=== PATIENT | male | born 1945 | race Caucasian/White ===

== ENCOUNTER 2016-09-09 19:15 | Inpatient (IN) | payer OTHER ==
[~2016-09-09] VITALS: Ht 177.8 cm; Wt 68.0 kg
--- NOTE | ~2016-09-09 | H ---
[facility] [place] [address] HISTORY AND PHYSICAL Name: ABEL LYNN Room #: 315-P [facility] IN M.R.#: [id number] Admission: 09/09/16 Attend Phys: Catrachito Martines Discharge: 09/11/16 Date of : 45 Report #: [id number] THIS REPORT FOR: //name// CC: FAM unknown Catrachito Martines DATE OF SERVICE: 09/09/2016 ATTENDING PHYSICIAN: Cody Reyes M.D. PRIMARY CARE PHYSICIAN: Dr Villalpando at the [facility]. CHIEF COMPLAINT: Left-side pain. HISTORY OF PRESENT ILLNESS: The patient is a 71-year-old male who reports that he has not been feeling well for about a week. He has been having fevers on and off for a week for which he has been taking Tylenol. He was seen 2 days ago at the [facility] and told that he had a UTI. He was started on Cipro. Initially he felt a little better, but then today he got worse and actually had a fever up to 104.6 and he has been having chills. He developed some left-sided flank pain over the last few days. He can pinpoint the pain right on his lateral left side and does not feel like it is moving. He denies any history of nephrolithiasis. He denies any associated chest pain or shortness of breath. He is on Enbrel and methotrexate for rheumatoid arthritis. Upon my arrival, he was having some nausea and did have vomiting. He denies any other episodes of vomiting at home. He denies any diarrhea, but says his stools have been soft ever since he was on the Cipro over the last few days. He presented in the ER with a temperature of 39.0. He also reports that he has BPH and was told he needed to have a TURP, but that has not yet been scheduled. PAST MEDICAL HISTORY: Rheumatoid arthritis, chronic back pain and restless legs syndrome. PAST SURGICAL HISTORY: Bowel resection for fatty tumors, benign fatty tumor removed from the spine and abdominal wall repair. Cholecystectomy. ALLERGIES: ASPIRIN, CODEINE and PENICILLIN. HOME MEDICATIONS: Methotrexate 2.5 mg weekly, tramadol 50 mg q.4 hours p.r.n., trazodone 100 mg daily, folic acid 400 mcg daily and Enbrel 50 mcg weekly. SOCIAL HISTORY: The patient denies any tobacco, alcohol or drug use. He lives at home with his . He ambulates with a cane. He is retired computer systems information director. FAMILY HISTORY: His mother and father both in their 90s [place] [address] HISTORY AND PHYSICAL Name: ABEL LYNN Room #: 315-P [facility] IN M.R.#: [id number] Admission: 09/09/16 Attend Phys: Catrachito Martines Discharge: 09/11/16 Date of : 45 Report #: [id number] strokes or natural causes. REVIEW OF SYSTEMS: The patient denies any history of coronary artery disease or any recent chest pain or palpitations, denies any history of kidney or liver problems. He denies any history of diabetes. All other 12-point review of systems were reviewed with the patient, otherwise negative unless stated in the HPI. PHYSICAL EXAMINATION: GENERAL: The patient is an alert male in no acute distress. VITAL SIGNS: Temperature max is 39.0, heart rate 118, respirations 17, blood pressure is 153/73 and oxygen 94% on room air. HEENT: PERRLA. He is wearing glass and has strabismus of the left eye. Oral mucosa is pink and moist. NECK: Supple, no JVD noted. CARDIOVASCULAR: Normal S1 and S2. No murmurs, rubs or gallops. RESPIRATORY: Breath sounds are clear bilaterally. No wheezing or rhonchi. Breathing is nonlabored. ABDOMEN: Soft and nondistended. He did have pain in the left lateral lower rib area, but he really does not have any CVA tenderness. Bowel sounds are positive. VASCULAR: No edema noted. Pedal pulses are 2+. NEUROLOGIC: The patient is alert and oriented x 3. Speech is clear. He is moving all extremities equally. No focal neuro deficits noted. LABORATORY AND DIAGNOSTIC DATA: WBC is 8.0, hemoglobin 15.0 and platelets 191. Sodium 138, potassium 4.0, BUN 24, creatinine 1.4 and glucose 133. Lactate 1.9. LFTs are elevated with a bilirubin of 2.4, AST 71, ALT is 89 and alkaline phosphatase is 141. UA showed positive nitrite, trace leukocyte esterase, few wbc's and few bacteria. CT of the abdomen and pelvis showed no inflammatory mass, ascites, bowel obstructive or other acute process. ASSESSMENT AND PLAN: 1. Pyelonephritis with urinary tract infection: Urine will be sent for a culture. Blood cultures will also be drawn. We will continue with cefepime since he has been immunocompromised. Continue with supportive care and IV fluids. 2. Rheumatoid arthritis: He is on immunosuppressant therapy with Enbrel and methotrexate; those will be held. 3. Acute kidney injury versus chronic kidney disease: Prior creatinine is unknown. We will gently hydrate and repeat labs in the morning. 4. Hyperbilirubinemia and mild transaminitis: CT does show that he has had a prior cholecystectomy. I am not sure if these numbers are elevated due to any other abdominal process. We will further evaluate with a right upper quadrant ultrasound. 5. Deep venous thrombosis prophylaxis: Place sequential compression devices. [facility] [address] [place] [address] HISTORY AND PHYSICAL Name: LYNNABEL Room #: 315-P [facility] IN M.R.#: [id number] Admission: 09/09/16 Attend Phys: Catrachito Martines Discharge: 09/11/16 Date of : 45 Report #: [id number] We will continue to follow the patient closely throughout the hospitalization and make changes based on clinical status. <ELECTRONICALLY SIGNED> By: ANGELINA Howell 09/14/16 [id number] ANGELINA Howell /nt
[2016-09-09 19:16] VITALS: BP 153/73
[2016-09-09 19:33] LABS: URINE BILIRUBIN NEGATIVE (Negative); URINE BLOOD 1+ (Negative); URINE COLOR YELLOW; URINE GLUCOSE-RANDOM* NEGATIVE (Negative); URINE KETONES TRACE (Negative); URINE LEUKOCYTES-REFLEX TRACE (Negative); URINE PROTEIN (DIPSTICK) NEGATIVE (Negative)
[2016-09-09 19:44] LABS: SQUAMOUS None Seen /LPF (0-3); URINE RBC 3-10 Few /HPF (0-2); URINE WBC-REFLEX 6-15 Few /HPF (0-5)
[2016-09-09 19:45] LABS: CASTS None Seen /LPF (None Seen); CRYSTALS None Seen /LPF (None Seen)
[2016-09-09 19:55] LABS: HEMATOCRIT 42.2 % (42.0-52.0); MCH 30.3 pg (26.0-34.0); MCHC 35.6 g/dL (28.0-37.0); MCV 85.3 fL (80.0-100.0); PLATELET COUNT 191 thou/uL (150-400); RBC 4.94 mil/uL (4.50-6.00); RDW 14.6 % (10.5-14.5)
[2016-09-09 19:57] LABS: MANUAL DIFF YES
[2016-09-09 20:08] LABS: CALCIUM 8.8 mg/dL (8.5-10.1); CREATININE 1.4 mg/dL (0.7-1.3)
[2016-09-09 20:13] LABS: ALBUMIN 3.4 g/dL (3.4-5.0); TOTAL BILIRUBIN 2.4 mg/dL (<0.1-1.0); TOTAL PROTEIN 6.5 g/dL (6.4-8.2)
[2016-09-09 20:16] LABS: ABSOLUTE NEUTROPHILS 7.4 thou/uL (1.4-8.2); TOTAL CELL COUNT 100
[2016-09-09 20:17] LABS: ANISOCYTOSIS 1+
[2016-09-09] MEDS ORDERED: ULTRAM 50MG TAB50 MG PO (21:21)
[2016-09-09] MEDS ORDERED: ENBREL50 MG/1 ML SQ (21:22)
[2016-09-09] MEDS ORDERED: METHOTREXATE 22.5 MG PO (21:23)
[2016-09-09] MEDS ORDERED: FOLIC ACID 40400 MCG PO (21:23)
[2016-09-09] MEDS ORDERED: TRAZODONE HCL100 MG PO (21:24)
[2016-09-09 21:55] VITALS: BP 132/62
[2016-09-10 08:51] VITALS: BP 106/52
[2016-09-10 12:38] VITALS: BP 121/75
[2016-09-10 15:44] VITALS: BP 133/59
[2016-09-10 20:29] VITALS: BP 118/59
[2016-09-11 04:07] LABS: ALBUMIN 2.5 g/dL (3.4-5.0); CREATININE 1.1 mg/dL (0.7-1.3); POTASSIUM 3.7 mmol/L (3.5-5.1); TOTAL BILIRUBIN 1.8 mg/dL (<0.1-1.0); TOTAL PROTEIN 5.3 g/dL (6.4-8.2)
[2016-09-11 04:39] VITALS: BP 120/62
[2016-09-11 05:54] LABS: ALBUMIN 2.5 g/dL (3.4-5.0); CALCIUM 8.1 mg/dL (8.5-10.1); PHOSPHORUS 2.4 mg/dL (2.5-4.9); POTASSIUM 3.8 mmol/L (3.5-5.1)
[2016-09-11 08:33] VITALS: BP 127/72
[2016-09-11] MEDS ORDERED: CEFTIN 250250 MG/52 PO (09:32)
[2016-09-11 09:49] VITALS: BP 127/72
== END 2016-09-11 10:45 | disposition home or self-care (01) | DRG 727 ==
LOC: ER 19:15 → EROBS 21:19 → 3N 21:19
PROVIDERS: Hospitalist; Nurse Practitioner Acute Care; Physician Assistant
DX: N41.0 Acute prostatitis (principal); E43 Unspecified severe protein-calorie malnutrition; N17.9 Acute kidney failure, unspecified; N12 Tubulo-interstitial nephritis, not specified as acute or chronic; E80.6 Other disorders of bilirubin metabolism; R74.0 Nonspecific elevation of levels of transaminase and lactic acid dehydrogenase [LDH]; M06.9 Rheumatoid arthritis, unspecified; G89.29 Other chronic pain; M54.9 Dorsalgia, unspecified; G25.81 Restless legs syndrome; Z90.49 Acquired absence of other specified parts of digestive tract; Z88.0 Allergy status to penicillin; Z82.3 Family history of stroke; Z88.6 Allergy status to analgesic agent; Z88.1 Allergy status to other antibiotic agents
CPT/HCPCS: 10096

== ENCOUNTER 2016-11-17 15:23 | Emergency (ER) | payer OTHER ==
[~2016-11-17] VITALS: Ht 177.8 cm; Wt 88.5 kg
--- NOTE | ~2016-11-17 | EKG ---
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
[~2016-11-17 15:23] MED LIST: CEFTIN 250250 MG/52 PO; ENBREL50 MG/1 ML SQ; FOLIC ACID 40400 MCG PO; METHOTREXATE 22.5 MG PO; TRAZODONE HCL100 MG PO; ULTRAM 50MG TAB50 MG PO
[2016-11-17 15:59] LABS: ABSOLUTE NEUTROPHILS 6.7 thou/uL (1.4-8.2); BASOPHILS 1.5 % (0.0-2.0); HEMATOCRIT 40.5 % (42.0-52.0); HEMOGLOBIN 14.1 gm/dL (14.0-18.0); LYMPHOCYTES 19.1 % (24.0-44.0); MCH 29.9 pg (26.0-34.0); MCHC 34.8 g/dL (28.0-37.0); MCV 85.9 fL (80.0-100.0); MONOCYTES 7.6 % (1.0-8.0); PLATELET COUNT 283 thou/uL (150-400); POLYS 69.8 % (36.0-66.0); RBC 4.71 mil/uL (4.50-6.00); RDW 15.2 % (10.5-14.5); WBC 9.6 thou/uL (4.0-11.0)
[2016-11-17 16:03] LABS: MANUAL DIFF NO
[2016-11-17 16:07] LABS: CALCIUM 8.5 mg/dL (8.5-10.1); POTASSIUM 3.6 mmol/L (3.5-5.1)
== END 2016-11-17 17:07 | disposition home or self-care (01) ==
LOC: ER 15:23
PROVIDERS: Physician Assistant
DX: S01.81XA Laceration without foreign body of other part of head, initial encounter (principal); R55 Syncope and collapse; M06.9 Rheumatoid arthritis, unspecified; Z90.49 Acquired absence of other specified parts of digestive tract; Z99.81 Dependence on supplemental oxygen; Z88.6 Allergy status to analgesic agent; Z88.0 Allergy status to penicillin; W18.09XA Striking against other object with subsequent fall, initial encounter; Y93.89 Activity, other specified; Y92.89 Other specified places as the place of occurrence of the external cause; Y99.8 Other external cause status